=== PATIENT | female | born 1945 | race Caucasian/White ===

== ENCOUNTER 2018-09-02 07:42 | Emergency (ER) | payer OTHER ==
[~2018-09-02] VITALS: Ht 162.6 cm; Wt 76.9 kg
[2018-09-02 07:45] VITALS: Ht 162.6 cm; Wt 76.9 kg
[2018-09-02 08:12] VITALS: BP 131/77
== END 2018-09-02 08:12 | disposition home or self-care (01) ==
LOC: ED 07:42
DX: J03.90 Acute tonsillitis, unspecified (principal); M19.031 Primary osteoarthritis, right wrist; I10 Essential (primary) hypertension; E11.9 Type 2 diabetes mellitus without complications; E78.00 Pure hypercholesterolemia, unspecified